=== PATIENT | male | born 1965 | race African-American/Black ===

== ENCOUNTER 2019-02-20 00:07 | Inpatient (IN) | payer BC, OTHER ==
[~2019-02-20] VITALS: Ht 177.8 cm; Wt 74.8 kg
[2019-02-20] MEDS ORDERED: HYDROCODONE/ACETAMINOPHEN 10/325MG TABLET ONE (04:24)
[2019-02-20] MEDS ORDERED: CLONIDINE 0.1MG TABLET ONE (04:26)
[2019-02-20] MEDS ORDERED: CEFAZOLIN SODIUM 1000MG/VIAL ONE (05:06)
[2019-02-20 09:45] LABS: CHLORIDE 101 mEq/L (98-107)
[2019-02-20 10:08] LABS: HEMATOCRIT. 45.8 % (42.0-52.0); HEMOGLOBIN. 15.7 g/dL (14.0-18.0); MEAN CORPUSCULAR HEMOGLOBIN 30.3 pg (28.0-32.0); MEAN CORPUSCULAR VOLUME 88.3 fL (80.0-94.0); MEAN PLATELET VOLUME 9.7 fl (7.4-10.4); PLATELET 229 x1000/uL (130-400); RED BLOOD CELL COUNT 5.18 mill/uL (4.7-6.1); RED CELL DISTRIBUTION WIDTH 12.9 % (11.6-14.6)
[2019-02-20 10:10] LABS: PLATELET ESTIMATE NORMAL
[2019-02-20] MEDS ORDERED: ACETAMINOPHEN 325MG TABLET PO PRN (10:15)
[2019-02-20] MEDS ORDERED: HYDROCODONE/ACETAMINOPHEN 10/325MG TABLET PO PRN (10:15)
[2019-02-20] MEDS ORDERED: ZOLPIDEM TARTRATE 5MG TABLET PO PRN (10:15)
[2019-02-20] MEDS ORDERED: DEXTROSE 50% WATER 50ML SYRINGE IV PRN (10:15)
[2019-02-20] MEDS ORDERED: DOCUSATE SODIUM 100MG CAPSULE PO PRN (10:15)
[2019-02-20] MEDS ORDERED: LORAZEPAM 0.5MG TABLET PO PRN (10:15)
[2019-02-20] MEDS ORDERED: NITROGLYCERIN 0.4MG TABLET SL SL PRN (10:15)
[2019-02-20] MEDS ORDERED: IPRATROPIUM/ALBUTEROL 0.5-3(2.5)MG/3ML NEB NEB PRN (10:15)
[2019-02-20] MEDS ORDERED: ONDANSETRON HCL 4MG/2ML INJ IV PRN (10:15)
[2019-02-20] MEDS ORDERED: PIPERACILLIN/TAZ 3.375G PREMIX 50 ML IV SCH (10:15)
[2019-02-20] MEDS ORDERED: KETOROLAC 15MG/ML VIAL IV PRN (10:15)
[2019-02-20] MEDS ORDERED: GUAIFENESIN 200MG/10ML SUGAR FREE UDC PO PRN (10:15)
[2019-02-20] MEDS ORDERED: MAGNESIUM/ALUMINUM HYDROXIDE/SIMETHICONE 30ML UDC PO PRN (10:15)
[2019-02-20] MEDS: ENOXAPARIN 40MG/0.4ML SYR SUBCUT SCH (16:00)
[2019-02-20 16:12] VITALS: BP 138/76
[2019-02-20 16:45] VITALS: BP 138/76
[2019-02-20] MEDS ORDERED: VANCOMYCIN 1500MG in DEXTROSE 5% WATER 250ML IV SCH (17:00)
[2019-02-20] MEDS: CLONIDINE 0.1MG TABLET PO PRN (17:52)
[2019-02-20 17:55] LABS: CREATINE KINASE 428 IU/L (39-308)
[2019-02-20 17:56] LABS: CREATINE KINASE MB FRACTION 3.2 ng/mL (0.5-3.6)
[2019-02-20] MEDS: INSULIN LISPRO 100 UNITS/ML SUBCUT SCH ×2 (18:17→23:05)
[2019-02-20] MEDS: PIPERACILLIN/TAZOBACTAM 3.375 G in DEXT 5% WATER 100 ML IV SCH (19:54)
[2019-02-20 20:00] VITALS: BP 129/75
[2019-02-20] MEDS: BLOOD SUGAR DIAGNOSTIC STRIP TEST SCH (21:00)
[2019-02-20] MEDS ORDERED: INSULIN GLARGINE UD 100 UNITS/ML SYR SUBCUT SCH (22:00)
[2019-02-20 22:35] LABS: CREATINE KINASE 408 IU/L (39-308)
[2019-02-20 22:36] LABS: CREATINE KINASE MB FRACTION 2.6 ng/mL (0.5-3.6)
[2019-02-20] MEDS: LISINOPRIL 20MG TABLET PO SCH (23:04)
[2019-02-21] VITALS: BP 126/74
[2019-02-21] MEDS: INSULIN GLARGINE UD 100 UNITS/ML SYR SUBCUT SCH ×2 (00:29→22:12)
[2019-02-21] MEDS: VANCOMYCIN 1250MG in DEXTROSE 5% WATER 250ML IV SCH ×4 (00:29→22:05)
[2019-02-21] MEDS: PIPERACILLIN/TAZOBACTAM 3.375 G in DEXT 5% WATER 100 ML IV SCH ×4 (02:31→17:44)
[2019-02-21 04:00] VITALS: BP 123/75
[2019-02-21 06:42] LABS: *AMPHETAMINES SCREEN URINE NEGATIVE (NEGATIVE); *BARBITURATES SCREEN URINE NEGATIVE (NEGATIVE); *BENZODIAZEPINES SCREEN URINE NEGATIVE (NEGATIVE); *COCAINE SCREEN URINE NEGATIVE (NEGATIVE)
[2019-02-21 06:43] LABS: CANNABINOID URINE SCREEN NEGATIVE (NEGATIVE); METHADONE URINE SCREEN NEGATIVE (NEGATIVE); OPIATES URINE SCREEN PRESUMTIVE POSITIVE (NEGATIVE); PHENCYCLIDINE URINE SCREEN NEGATIVE (NEGATIVE)
[2019-02-21 08:00] VITALS: BP 124/75
[2019-02-21] MEDS: BLOOD SUGAR DIAGNOSTIC STRIP TEST SCH ×4 (08:02→21:39)
[2019-02-21 08:31] LABS: BASOPHILS % 0.6 % (0.0-2.0); EOSINOPHILS % 3.2 % (0.0-5.0); HEMATOCRIT. 40.2 % (42.0-52.0); LYMPHOCYTES % 20.6 % (20.0-50.0); MEAN CORPUSCULAR HEMOGLOBIN 30.9 pg (28.0-32.0); MEAN CORPUSCULAR VOLUME 88.5 fL (80.0-94.0); MEAN PLATELET VOLUME 9.2 fl (7.4-10.4); MONOCYTES % 10.8 % (2.0-8.0); NEUTROPHILS % 64.8 % (40.0-76.0); PLATELET 206 x1000/uL (130-400); RED BLOOD CELL COUNT 4.54 mill/uL (4.7-6.1); RED CELL DISTRIBUTION WIDTH 12.6 % (11.6-14.6)
[2019-02-21] MEDS: ENOXAPARIN 40MG/0.4ML SYR SUBCUT SCH (09:00)
[2019-02-21] MEDS: INSULIN LISPRO 100 UNITS/ML SUBCUT SCH ×4 (09:23→22:07)
[2019-02-21] MEDS: LISINOPRIL 20MG TABLET PO SCH ×2 (09:25→21:00)
[2019-02-21 12:00] VITALS: BP 119/81
[2019-02-21 16:00] VITALS: BP 109/67
[2019-02-21 20:00] VITALS: BP 99/57
[2019-02-22] VITALS: BP 142/82
[2019-02-22] MEDS: PIPERACILLIN/TAZOBACTAM 3.375 G in DEXT 5% WATER 100 ML IV SCH ×4 (00:11→19:20)
[2019-02-22] MEDS: MORPHINE SULFATE 2 MG/ML CPJ (NOT FOR IM USE) IV PRN (02:11)
[2019-02-22 04:00] VITALS: BP 147/80
[2019-02-22] MEDS: VANCOMYCIN 1250MG in DEXTROSE 5% WATER 250ML IV SCH ×3 (05:14→22:08)
[2019-02-22] MEDS: BLOOD SUGAR DIAGNOSTIC STRIP TEST SCH ×4 (05:25→20:55)
[2019-02-22 08:00] VITALS: BP 136/83
[2019-02-22] MEDS: LISINOPRIL 20MG TABLET PO SCH ×2 (08:19→20:55)
[2019-02-22] MEDS: INSULIN LISPRO 100 UNITS/ML SUBCUT SCH ×4 (08:20→22:07)
[2019-02-22] MEDS: ENOXAPARIN 40MG/0.4ML SYR SUBCUT SCH (08:20)
[2019-02-22] MEDS ORDERED: INSHUMSS SUBCUT (10:47)
[2019-02-22] MEDS ORDERED: INSU100I28 SQ (10:47)
[2019-02-22] MEDS ORDERED: HYDR-4009 MT (11:28)
[2019-02-22 12:00] VITALS: BP 119/67
[2019-02-22 20:00] VITALS: BP 143/81
[2019-02-22] MEDS: INSULIN GLARGINE UD 100 UNITS/ML SYR SUBCUT SCH (22:08)
[2019-02-23 00:17] VITALS: BP 140/82
[2019-02-23] MEDS: PIPERACILLIN/TAZOBACTAM 3.375 G in DEXT 5% WATER 100 ML IV SCH ×4 (00:28→17:23)
[2019-02-23] MEDS: MORPHINE SULFATE 2 MG/ML CPJ (NOT FOR IM USE) IV PRN (02:12)
[2019-02-23 05:11] VITALS: BP 139/64
[2019-02-23] MEDS: VANCOMYCIN 1250MG in DEXTROSE 5% WATER 250ML IV SCH ×2 (06:00→13:06)
[2019-02-23] MEDS: BLOOD SUGAR DIAGNOSTIC STRIP TEST SCH ×4 (06:00→21:50)
[2019-02-23 08:00] VITALS: BP 145/79
[2019-02-23] MEDS ORDERED: CLIN300C11 MT (09:29)
[2019-02-23] MEDS: INSULIN LISPRO 100 UNITS/ML SUBCUT SCH ×4 (09:41→21:51)
[2019-02-23] MEDS: LISINOPRIL 20MG TABLET PO SCH ×2 (09:42→21:50)
[2019-02-23] MEDS: ENOXAPARIN 40MG/0.4ML SYR SUBCUT SCH (09:42)
[2019-02-23 12:00] VITALS: BP 161/81
[2019-02-23 16:00] VITALS: BP 147/85
[2019-02-23 20:00] VITALS: BP 139/70
[2019-02-23] MEDS: INSULIN GLARGINE UD 100 UNITS/ML SYR SUBCUT SCH (21:52)
[2019-02-24] MEDS: VANCOMYCIN 1250MG in DEXTROSE 5% WATER 250ML IV SCH ×2 (00:55→06:00)
[2019-02-24] MEDS: PIPERACILLIN/TAZOBACTAM 3.375 G in DEXT 5% WATER 100 ML IV SCH ×3 (06:00)
[2019-02-24] MEDS: BLOOD SUGAR DIAGNOSTIC STRIP TEST SCH ×4 (07:40→21:37)
[2019-02-24 08:00] VITALS: BP 146/93
[2019-02-24] MEDS: INSULIN LISPRO 100 UNITS/ML SUBCUT SCH ×5 (08:10→21:41)
[2019-02-24] MEDS: ENOXAPARIN 40MG/0.4ML SYR SUBCUT SCH (08:23)
[2019-02-24] MEDS: LISINOPRIL 20MG TABLET PO SCH ×2 (10:05→21:40)
[2019-02-24 12:00] VITALS: BP 145/78
[2019-02-24] MEDS: CLINDAMYCIN HCL 150MG CAPSULE PO SCH ×2 (14:13→21:40)
[2019-02-24 16:00] VITALS: BP 130/72
[2019-02-24 20:00] VITALS: BP 143/75
[2019-02-24] MEDS: INSULIN GLARGINE UD 100 UNITS/ML SYR SUBCUT SCH ×2 (21:42→21:47)
[2019-02-25] MEDS: BLOOD SUGAR DIAGNOSTIC STRIP TEST SCH ×4 (07:17→21:27)
[2019-02-25] MEDS: INSULIN LISPRO 100 UNITS/ML SUBCUT SCH ×4 (07:17→21:27)
[2019-02-25] MEDS: CLINDAMYCIN HCL 150MG CAPSULE PO SCH ×3 (07:19→21:28)
[2019-02-25 08:00] VITALS: BP 148/80
[2019-02-25] MEDS: ENOXAPARIN 40MG/0.4ML SYR SUBCUT SCH (09:00)
[2019-02-25] MEDS: LISINOPRIL 20MG TABLET PO SCH ×2 (09:00→21:00)
[2019-02-25 12:00] VITALS: BP 171/89
[2019-02-25 16:00] VITALS: BP 150/87
[2019-02-25] MEDS: INSULIN GLARGINE UD 100 UNITS/ML SYR SUBCUT SCH (21:29)
[2019-02-26] VITALS: BP 153/83
[2019-02-26] MEDS: CLINDAMYCIN HCL 150MG CAPSULE PO SCH (06:35)
[2019-02-26] MEDS: BLOOD SUGAR DIAGNOSTIC STRIP TEST SCH ×3 (07:40→12:15)
[2019-02-26] MEDS: INSULIN LISPRO 100 UNITS/ML SUBCUT SCH ×2 (07:45→12:15)
[2019-02-26 08:00] VITALS: BP 159/85
[2019-02-26] MEDS: LISINOPRIL 20MG TABLET PO SCH (08:36)
[2019-02-26] MEDS: ENOXAPARIN 40MG/0.4ML SYR SUBCUT SCH (08:37)
[2019-02-26] MEDS: CLONIDINE 0.1MG TABLET PO PRN (11:25)
[2019-02-26 12:00] VITALS: BP 157/87
[2019-02-26 12:33] VITALS: BP 157/87
== END 2019-02-26 14:17 | disposition home or self-care (01) | DRG 563 ==
LOC: ER 00:07 → 7WST 09:07 → CANRESERV 10:47 → ENRESERV 10:47
PROVIDERS: ADMIT Internal Medicine; ATTEND Internal Medicine
DX: S92.412A Displaced fracture of proximal phalanx of left great toe, initial encounter for closed fracture (principal); E87.1 Hypo-osmolality and hyponatremia; E11.65 Type 2 diabetes mellitus with hyperglycemia; I10 Essential (primary) hypertension; I44.7 Left bundle-branch block, unspecified; S92.322A Displaced fracture of second metatarsal bone, left foot, initial encounter for closed fracture; S92.342A Displaced fracture of fourth metatarsal bone, left foot, initial encounter for closed fracture; S92.352A Displaced fracture of fifth metatarsal bone, left foot, initial encounter for closed fracture; Z79.899 Other long term (current) drug therapy; Z91.11 Patient's noncompliance with dietary regimen; Z91.14 Patient's other noncompliance with medication regimen; V49.9XXA Car occupant (driver) (passenger) injured in unspecified traffic accident, initial encounter; Y93.89 Activity, other specified; Y92.89 Other specified places as the place of occurrence of the external cause; Y99.8 Other external cause status
CPT/HCPCS: 36415; 71045; 73630; 73700; 80053; 80061; 80202; 80305; 82550; 82553; 82962; 83036; 83880; 84484; 85025; 93005; 93970; 97116; 97162; 97166; 99285; A4565; J0690; J1650; J1815; J2270; J2543; J3370; J7040; J7060